=== PATIENT | male | born 1930 | race African-American/Black ===

== ENCOUNTER 2017-05-11 12:02 | Emergency (ER) | payer MEDICARE, OTHER ==
[~2017-05-11] VITALS: Ht 182.9 cm; Wt 68.0 kg
[2017-05-11] VITALS (7 sets, daily range): BP systolic 90–130; BP diastolic 43–65
[2017-05-11] MEDS ORDERED: Cefepime 1gm vial ONE (12:13)
[2017-05-11] MEDS ORDERED: Cefepime HCl 1 GM in NS 55 ML IV SCH (12:15)
[2017-05-11 12:23] LABS: MEAN CORPUSCULAR HEMOGLOBIN 26.6 PG (27.0-31.0); MEAN CORPUSCULAR HGB CONC 30.2 G/DL (32.0-36.0); MEAN CORPUSCULAR VOLUME 88 FL (80-99); MEAN PLATELET VOLUME 5.7 FL (6.5-10.1); PLATELET COUNT 273 K/UL (150-450); RED BLOOD COUNT 3.65 M/UL (4.70-6.10)
[2017-05-11 12:38] LABS: INR 1.3 (0.9-1.1); PROTHROMBIN TIME 13.6 SEC (9.30-11.50)
[2017-05-11] MEDS ORDERED: ZOCOR80 MG ORAL (12:38)
[2017-05-11] MEDS ORDERED: ADALAT20 MG ORAL (12:38)
[2017-05-11] MEDS ORDERED: NORCO 5-325 TA1 EACH ORAL (12:38)
[2017-05-11] MEDS ORDERED: FUROSEMIDE40 MG ORAL (12:38)
[2017-05-11] MEDS ORDERED: SIMETHICONE80 MG ORAL (12:38)
[2017-05-11] MEDS ORDERED: TYLENOL650 MG/20. ORAL (12:38)
[2017-05-11] MEDS ORDERED: FOLIC ACID1 MG ORAL (12:38)
[2017-05-11] MEDS ORDERED: MONTELUKAST SOD10 MG ORAL (12:38)
[2017-05-11] MEDS ORDERED: IPRATROPIU0.2 MG/1 M HHN (12:38)
[2017-05-11] MEDS ORDERED: ZOFRAN4 M3 ORAL (12:38)
[2017-05-11] MEDS ORDERED: TAMSULOSIN HCL0.4 MG ORAL (12:38)
[2017-05-11] MEDS ORDERED: NEXIUM40 M2 ORAL (12:38)
[2017-05-11] MEDS ORDERED: XARELTO10 MG ORAL (12:38)
[2017-05-11] MEDS ORDERED: LEVALBUTER0.31 MG/3 IH (12:38)
[2017-05-11 12:51] LABS: APPEARANCE,URINE SLIGHTLY CLOUDY; KETONES,URINE NEGATIVE (NEGATIVE); LEUKOCYTE ESTERASE ,URINE 2+ (NEGATIVE); NITRITE,URINE NEGATIVE (NEGATIVE); PH,URINE 5 (4.5-8.0); PROTEIN,URINE 2+ (NEGATIVE); UROBILINOGEN,URINE NORMAL MG/DL (0.0-1.0)
[2017-05-11 12:52] LABS: ANISOCYTOSIS 1+; BAND NEUTROPHILS % (MANUAL) 0 % (0-8); BASOPHILS % (MANUAL) 0 % (0-2); EOSINOPHILS % (MANUAL) 0 % (0-3); HYPOCHROMASIA 1+; LYMPHOCYTES % (MANUAL) 3 % (20-45); NEUTROPHILS % (MANUAL) 91 % (45-75); PLATELET ESTIMATE ADEQUATE; PLATELET MORPHOLOGY NORMAL; TOTAL CELLS COUNTED 100
[2017-05-11 13:00] LABS: ALANINE AMINOTRANSFERASE 12 U/L (12-78); ALBUMIN/GLOBULIN RATIO 0.6 (1.0-2.7); ANION GAP 13 mmol/L (5-15); ASPARTATE AMINO TRANSFERASE 18 U/L (15-37); CALCIUM 7.8 MG/DL (8.5-10.1); CARBON DIOXIDE 29 MMOL/L (21-32); CHLORIDE 101 MMOL/L (98-107); CKMB 2.3 NG/ML (0.0-3.6); CREATININE 1.5 MG/DL (0.55-1.30); MAGNESIUM 0.9 MG/DL (1.8-2.4); PHOSPHORUS 2.7 MG/DL (2.5-4.9); POTASSIUM 2.7 MMOL/L (3.5-5.1); SODIUM 144 MMOL/L (136-145); TOTAL PROTEIN 6.7 G/DL (6.4-8.2)
[2017-05-11 13:02] LABS: BACTERIA,URINE OCCASIONAL /HPF; RBC,URINE 60-80 /HPF (0 - 0); SQUAMOUS EPITHELIAL CELL,UR OCCASIONAL /LPF (NONE/OCC)
[2017-05-11] MEDS ORDERED: Albuterol/Ipratropium 3ml neb HHN ONE (13:15)
--- NOTE | 2017-05-11 14:04 | Emergency Room Report ---
History of Present Illness General Chief Complaint: Chest Pain Source: Patient, Medical Record, EMS Present Illness HPI Patient is an 86-year-old male who presented after increased difficulty breathing and chest pain. Patient was sent in by EMS after increased fever by Dr. Rodriguez. Patient was noted to have prior history of right lung empyema. He was sent in from [facility]. Patient recent chest tube removal. Had prior history of COPD. He reports having right-sided sharp chest pain. Allergies: Coded Allergies: No Known Allergies (Verified , 05/09/05) Uncoded Allergies: NKA (Allergy, Unknown, 05/06/05) Patient History Past Medical History: see triage record Reviewed Nursing Documentation: PMH: Agreed, PSxH: Agreed Nursing Documentation-PMH Hx COPD: Yes - emphysema, pleural effusion, pulmonary embolism Review of Systems All Other Systems: negative except mentioned in HPI Physical Exam Vital Signs Date Time Temp Pulse Resp B/P (MAP) Pulse Ox O2 Delivery O2 Flow Rate FiO2 05/11/17 12:03 131 19 88 Nasal Cannula 2.0 05/11/17 12:10 92 05/11/17 12:10 101.9 106/43 Sp02 EP Interpretation: reviewed, normal General Appearance: normal inspection, alert, moderate distress, Chronically Ill Head: atraumatic ENT: normal ENT inspection, hearing grossly normal, normal voice Neck: normal inspection, full range of motion, supple, no bony tend Respiratory: normal inspection, no respiratory distress, no retraction, other - decreased breath sounds to right lung Cardiovascular #1: regular rate, rhythm, no edema Gastrointestinal: normal inspection, normal bowel sounds, non tender, soft, no guarding, no hernia Genitourinary: no CVA tenderness Musculoskeletal: normal inspection, back normal, normal range of motion Neurologic: normal inspection, alert, oriented x3, responsive, cement tile maker III-XII nml as tested, speech normal, motor weakness Psychiatric: normal inspection, judgement/insight normal, mood/affect normal Skin: normal inspection, normal color, no rash Procedures Critical Care Time Critical Care Time Patient had a critical medical condition which untreated could potentially result in life or limb threatening injury. Total critical care time excluding procedures approximately 45 minutes. Medical Decision Making Diagnostic Impression: Primary Impression: Severe sepsis Additional Impressions: Pneumonia Hx of pleural empyema Bullous emphysema Liver cyst ER Course Patient presented for shortness of breath. Differential included but was not limited to anemia, pneumonia, pneumothorax, myocardial infarction, pericardial effusion, congestive heart failure, acidosis.The patient was noted to have prior history of empyema. CT of the chest was ordered and patient recent surgery. The patient started IV fluids and IV antibiotics. The patient started on BiPAP The CT chest results currently pending. The patient endorsed Dr. Ordaz pending the CT reading and a probable transfer for higher level of care for thoracic surgery. The patient was given IV antibiotics including IV vancomycin. The potassium was ordered for patient's hypokalemia. Labs Test 05/11/17 12:10 05/11/17 12:40 White Blood Count 31.0 K/UL (4.8-10.8) Red Blood Count 3.65 M/UL (4.70-6.10) Hemoglobin 9.7 G/DL (14.2-18.0) Hematocrit 32.1 % (42.0-52.0) Mean Corpuscular Volume 88 FL (80-99) Mean Corpuscular Hemoglobin 26.6 PG (27.0-31.0) Mean Corpuscular Hemoglobin Concent 30.2 G/DL (32.0-36.0) Red Cell Distribution Width 17.0 % (11.6-14.8) Platelet Count 273 K/UL (150-450) Mean Platelet Volume 5.7 FL (6.5-10.1) Neutrophils (%) (Auto) % (45.0-75.0) Lymphocytes (%) (Auto) % (20.0-45.0) Monocytes (%) (Auto) % (1.0-10.0) Eosinophils (%) (Auto) % (0.0-3.0) Basophils (%) (Auto) % (0.0-2.0) Differential Total Cells Counted 100 Neutrophils % (Manual) 91 % (45-75) Lymphocytes % (Manual) 3 % (20-45) Monocytes % (Manual) 6 % (1-10) Eosinophils % (Manual) 0 % (0-3) Basophils % (Manual) 0 % (0-2) Band Neutrophils 0 % (0-8) Platelet Estimate Adequate Platelet Morphology Normal Hypochromasia 1+ Anisocytosis 1+ Prothrombin Time 13.6 SEC (9.30-11.50) Prothromb Time International Ratio 1.3 (0.9-1.1) Activated Partial Thromboplast Time 35 SEC (23-33) Sodium Level 144 MMOL/L (136-145) Potassium Level 2.7 MMOL/L (3.5-5.1) Chloride Level 101 MMOL/L (98-107) Carbon Dioxide Level 29 MMOL/L (21-32) Anion Gap 13 mmol/L (5-15) Blood Urea Nitrogen 25 mg/dL (7-18) Creatinine 1.5 MG/DL (0.55-1.30) Estimat Glomerular Filtration Rate mL/min (>60) Glucose Level 133 MG/DL (74-106) Lactic Acid Level 1.30 mmol/L (0.66-2.22) Calcium Level 7.8 MG/DL (8.5-10.1) Phosphorus Level 2.7 MG/DL (2.5-4.9) Magnesium Level 0.9 MG/DL (1.8-2.4) Total Bilirubin 1.0 MG/DL (0.2-1.0) Aspartate Amino Transf (AST/SGOT) 18 U/L (15-37) Alanine Aminotransferase (ALT/SGPT) 12 U/L (12-78) Alkaline Phosphatase 102 U/L (46-116) Total Creatine Kinase 32 U/L (26-308) Creatine Kinase MB 2.3 NG/ML (0.0-3.6) Creatine Kinase MB Relative Index 7.1 Troponin I 0.059 ng/mL (0.000-0.056) Total Protein 6.7 G/DL (6.4-8.2) Albumin 2.4 G/DL (3.4-5.0) Globulin 4.3 g/dL Albumin/Globulin Ratio 0.6 (1.0-2.7) Urine Color Pale yellow Urine Appearance Slightly cloudy Urine pH 5 (4.5-8.0) Urine Specific [place] 1.005 (1.005-1.035) Urine Protein 2+ (NEGATIVE) Urine Glucose (UA) Negative (NEGATIVE) Urine Ketones Negative (NEGATIVE) Urine Occult Blood 5+ (NEGATIVE) Urine Nitrite Negative (NEGATIVE) Urine Bilirubin Negative (NEGATIVE) Urine Urobilinogen Normal MG/DL (0.0-1.0) Urine Leukocyte Esterase 2+ (NEGATIVE) Urine RBC 60-80 /HPF (0 - 0) Urine WBC 5-10 /HPF (0 - 0) Urine Squamous Epithelial Cells Occasional /LPF Urine Bacteria Occasional /HPF (NONE) EKG Diagnostic Results Rate: tachycardiac Rhythm: NSR ST Segments: no acute changes Rhythm Strip Diag. Results EP Interpretation: yes Rhythm: NSR, no PVC's, no ectopy Last Vital Signs Date Time Temp Pulse Resp B/P (MAP) Pulse Ox O2 Delivery O2 Flow Rate FiO2 05/11/17 13:27 123 20 92 Bi-pap 80 05/11/17 12:10 101.9 106/43 15.0 Status: unchanged Disposition: ADMITTED INPATIENT Condition: Serious Referrals: [facility],REFERRING (PCP) Adrian Patel May 11, 2017 14:04
--- NOTE | 2017-05-11 14:16 | Diagnostic Imaging Report ---
Indication: SOB Technique: One view of the chest Comparison: 05/08/2005 Findings: Interim development of significant volume loss of the right lung. The right lung is diffusely opacified with interstitial and alveolar opacities. There is considerable right-sided pleural fluid versus thickening. The volume loss results in rightward displacement of the mediastinum, and compensatory hyperinflation of the left lung. Aorta is tortuous and calcified. The heart size is impossible to assess Impression: The right lung volume loss Extensive right lung pleural parenchymal disease, acuity indeterminate; per referring physician, patient has history of recent chest tube removal
[2017-05-11] MEDS ORDERED: Potassium Chloride 40 MEQ in Sodium Chloride 500ML 550 ML IVPB ONE (14:30)
[2017-05-11] MEDS ORDERED: Vancomycin 1 GM in D5W 275 ML IVPB ONE (14:45)
[2017-05-11] MEDS ORDERED: Vancomycin 1gm inj IVPB ONE (14:54)
--- NOTE | 2017-05-11 15:06 | Diagnostic Imaging Report ---
ndication: Shortness of breath, abnormal chest radiograph Technique: IV administration nonionic contrast. Spiral acquisitions obtained from the lung bases to the lung apices. Multiplanar and 3-D reconstructions were generated. Total dose length product similar to mGycm. CTDIvol(s) 12, 12, 75, 15 mGy. Dose reduction achieved using automated exposure control Comparison: None. Prior [address] could not be recalled Findings: Pulmonary arterial opacification is adequate although not optimal. No definite intraluminal filling defects or other findings to suggest acute pulmonary embolus demonstrated, but perform likely phleboliths. No significant pulmonary arterial dilatation. No evidence of thoracic aortic aneurysm or dissection normal heart size. No evidence of right ventricular dilatation. There is extensive right lung volume loss . Most of the right lung is atelectatic and consolidated. Parenchymal opacities are Intermixed with areas of bronchiectasis and cystic spaces are demonstrated. Much of the consolidated lung is very low in attenuation. There are is a small amount of pleural fluid on the right. Pleural fluid demonstrates mixed attenuation. A single small gas bubble is seen non-dependently within the right pleural space, image 77 of series 8 . There is endobronchial occlusion, likely by debris, of the right lower lobe bronchus. The right upper lobe bronchus appears to have a tapered occlusion at its origin. There is a 14 mm masslike opacity in the right lung apex. The left lung demonstrates diffuse hyperinflation and extensive bullous change. Reticular scarring is seen in the left upper lobe. There is also some scarring at the left lung base. No infiltrates are seen on the left. There is an enlarged node in the pretracheal region which measures 3.8 x 2 cm in diameter. The trachea is ectatic. The esophagus is mildly dilated with gas. No axillary or chest wall mass or adenopathy demonstrated. The left axillary vein demonstrates a few gas bubbles. The included thyroid is unremarkable. The subcutaneous fat is mildly edematous. The bones are unremarkable. The included upper abdominal anatomy demonstrates multiple hepatic cysts. There are also multiple hepatic subcentimeter low-attenuation lesions which are too small to characterize. A 1 cm calcification is seen in segment 8 of the liver. The spleen also demonstrates a calcification, as well as subcentimeter low-attenuation lesion. The adrenals are diffusely bulky bilaterally. The right adrenal contains a 1 cm diameter central low-attenuation lesion which nonetheless demonstrates nonspecific soft tissue attenuation is lower in attenuation than the surrounding parenchyma. The left kidney demonstrates an interpolar region cyst. Impression: Negative for acute pulmonary embolus or other acute thoracic vascular pathology Right lung atelectasis and consolidation, the former resulting in marked shift of mediastinum to the right. The consolidated parenchyma likely has a significant component of chronic fibrotic change as there is extensive bronchiectasis within it. However, low-attenuation of much of the consolidated/atelectatic lung raises the possibility of acute inflammation or edema, among other acute possibilities Occluded right upper and lower lobe bronchi, the latter by debris Small amount of pleural fluid on the right. Presence of mixed attenuation and a nondependent gas bubble indicates this is likely organized Evidence of extensive bullous COPD changes involving the left lung and the aerated portions of the right lung Right apical 14 mm masslike opacity. Given the other findings, most likely postinflammatory, but the possibility of a small neoplasm cannot be ruled out Mediastinal lymphadenopathy. This could be reactive, neoplastic, or inflammatory 1 cm right adrenal lesion which demonstrates nonspecific soft tissue attenuation. Consider further evaluation with adrenal protocol -- CT or MRI if clinically indicated Multiple hepatic cysts and subcentimeter low-attenuation lesions which are too small to characterize, most likely benign simple cysts or bile hamartomas. No further followup necessary Incidental findings as noted, including hepatic and splenic calcifications and a left renal cyst The CT scanner at [facility] is accredited by the [employer] and the scans are performed using protocols designed to limit radiation exposure to as low as reasonably achievable to attain images of sufficient resolution adequate for diagnostic evaluation.
[2017-05-11] MEDS: Albuterol ud Inhalation HHN SCH ×3 (17:45→18:15)
[2017-05-11] MEDS ORDERED: Morphine Sulfate 2mg/ml Inj IVP ONE (18:15)
[2017-05-11] MEDS ORDERED: Acetaminophen 500mg (ES) tab ORAL ONE (20:45)
--- NOTE | 2017-05-12 18:45 | Consultation ---
DATE OF CONSULTATION: 05/11/2017 INTERNAL MEDICINE CONSULTATION HISTORY OF PRESENT ILLNESS: This is an 86-year-old male, who came to the hospital today on 05/11/2017 with chest pain and shortness of breath. Apparently, he had been seen at outside facility [facility] and was advised to come to the emergency room. The patient has a history of right lung empyema status post surgery. He has recently had a chest tube removal. He had a history of COPD. In the ER, he was seen and worked up. He was found to have significant pathology again on imaging studies. There was no pulmonary embolism. He has right lung atelectasis and consolidation and a small amount of pleural fluid in the right. There was also a few right upper and lower lobe bronchi and extensive bullous COPD changes. There was also right apical masslike density. He was cleared for admission however given his insurance and recent plastic surgery plans were undertaken to contact his surgeon at [facility] and arrange transfer. I contacted the on-call pesticide use medical coordinator to arrange this process. PAST MEDICAL HISTORY: Notable for COPD and recent plastic surgery. MEDICATIONS: Summarized in chart. ALLERGIES: None. REVIEW OF SYSTEMS: The patient denies any headaches, hematemesis, melena, or hematochezia. PHYSICAL EXAMINATION: GENERAL: Reveals an 86-year-old male. VITAL SIGNS: Blood pressure is 130/70, heart rate 74, respirations 18, and O2 saturation 88% on 2 liters of oxygen, T-max is 101.9. HEENT: Unremarkable. LUNGS: Decreased breath sounds on right base. ABDOMEN: Soft. EXTREMITIES: There is edema. LABORATORY DATA: Lab testing shows white count 31,000 and hemoglobin 9.7. Chemistries show potassium 2.7, magnesium 0.7, and INR 1.3. IMPRESSION: Recurrent right lung empyema with sepsis. DISCUSSION: At this point, I consider to be in SIRS however given his complex illness including surgery at [facility], it is my opinion that he would be better managed at a higher level of care/[facility]. I have contacted the on-call pesticide use medical coordinator who will arrange transfer. Discussed with Dr. Ordaz in the emergency room. Tico Davidson M.D. DR: CASEY JOB#: [id number] CC:
--- NOTE | 2017-05-13 11:35 | Cardiology Report ---
APPROVED REPORT EKG Measurement Heart [id number] Sinus tachycardia with occasional premature ventricular complexes Otherwise normal ECG
== END 2017-05-11 21:33 | disposition short-term general hospital (02) ==
LOC: EDBD 12:02 → EDBEDREQ 12:40 → EMR 13:05 → EDBEDREQ 13:46 → EMR 21:33
DX: A41.9 Sepsis, unspecified organism (principal); J18.9 Pneumonia, unspecified organism; R65.20 Severe sepsis without septic shock; J43.9 Emphysema, unspecified; K76.89 Other specified diseases of liver; Z86.711 Personal history of pulmonary embolism
CPT/HCPCS: 36415; 71010; 71275; 80053; 81003; 82550; 82553; 82962; 83605; 83735; 84100; 84484; 85007; 85025; 85610; 85730; 87040; 93005; 94640; 94660; 94664; 96361; 96365; 96366; 96375; 99291; 99292; J2270; J2405; J3370; J3480; J7040; Q9967; J7620